=== PATIENT | female | born 1990 | race Caucasian/White ===

== ENCOUNTER 2021-11-23 04:18 | Emergency (ER) | payer OTHER ==
[~2021-11-23] VITALS: Ht 152.4 cm; Wt 40.8 kg
[2021-11-23 04:38] LABS: URINE BILIRUBIN NEGATIVE (Negative); URINE BLOOD NEGATIVE (Negative); URINE CLARITY SL CLOUDY; URINE COLOR YELLOW; URINE GLUCOSE-RANDOM* NEGATIVE (Negative); URINE KETONES NEGATIVE (Negative); URINE LEUKOCYTES-REFLEX NEGATIVE (Negative); URINE NITRITE-REFLEX NEGATIVE (Negative); URINE PROTEIN (DIPSTICK) 1+ (Negative); URINE SPECIFIC GRAVITY >= 1.030 (1.005-1.035); URINE UROBILINOGEN 0.2 E.U./dl (0.2-1.0)
[2021-11-23 05:45] LABS: ABSOLUTE NEUTROPHILS 3.3 thou/uL (1.4-8.2); BASOPHILS 0.2 % (0.0-2.0); EOSINOPHILS 1.8 % (0.0-3.0); HEMATOCRIT 37.9 % (37.0-47.0); HEMOGLOBIN 12.3 gm/dL (12.0-15.0); LYMPHOCYTES 37.7 % (24.0-44.0); MCH 27.9 pg (26.0-34.0); MCHC 32.5 g/dL (28.0-37.0); MONOCYTES 11.8 % (1.0-8.0); PLATELET COUNT 402 thou/uL (150-400); POLYS 48.5 % (36.0-66.0); RBC 4.41 mil/uL (4.20-5.00); RDW 14.9 % (10.5-14.5); WBC 6.7 thou/uL (4.0-11.0)
[2021-11-23 06:01] LABS: ALBUMIN 4.1 g/dL (3.4-5.0); CALCIUM 8.9 mg/dL (8.5-10.1); CREATININE 0.8 mg/dL (0.6-1.0); DIRECT BILIRUBIN 0.1 mg/dL (<0.1-0.2); TOTAL BILIRUBIN 0.5 mg/dL (0.2-1.0); TOTAL PROTEIN 7.6 g/dL (6.4-8.2)
[2021-11-23 06:14] LABS: POTASSIUM 2.9 mmol/L (3.5-5.1)
[2021-11-23] MEDS ORDERED: KLOR-CON M2020 MEQ PO (06:34)
[2021-11-23 08:16] VITALS: BP 105/72
== END 2021-11-23 08:16 | disposition home or self-care (01) ==
LOC: ER 04:18
PROVIDERS: Student in an Organized Health Care Education/Training Program
DX: E87.6 Hypokalemia (principal); R10.84 Generalized abdominal pain; Z88.0 Allergy status to penicillin; Z88.5 Allergy status to narcotic agent